=== PATIENT | male | born 1985 | race African-American/Black ===

== ENCOUNTER 2020-12-06 02:10 | Emergency (ER) | payer MEDICAID, OTHER ==
[~2020-12-06] VITALS: Ht 208.3 cm; Wt 106.6 kg
--- NOTE | 2020-12-06 02:19 | NUR ---
PT AAOX4. BIBRA FOR ETOH. PER PT HE DRANK VODKA. PT NOTED TO BE VOMITING. IV RAC 18G, PLACED. AWAITING FOR MD ORDERS.
[2020-12-06] MEDS ORDERED: IV NS 0.9% 1,000 ML BAG IV ONE (02:30)
[2020-12-06] MEDS ORDERED: ONDANSETRON HCL/PF 4 MG/2 ML VIAL IVP ONE ×2 (02:30→04:30)
[2020-12-06] MEDS ORDERED: ONDANSETRON HCL/PF 4 MG/2 ML VIAL ONE ×2 (02:31→04:16)
[2020-12-06] MEDS ORDERED: FAMOTIDINE/PF INJ 20 MG/2 ML VIAL IV ONE ×2 (03:42→04:00)
--- NOTE | 2020-12-06 04:07 | NUR ---
PT AMBULATED TO THE RESTROOM. ABLE TO AMBULATE ON HIS OWN.
--- NOTE | 2020-12-06 04:18 | NUR ---
PT VOMITING, ZOFRAN 4MG IVP GIVEN.
[2020-12-06] MEDS ORDERED: LIDOCAINE VISCOUS 2% UD 15 ML UDC ONE (04:32)
[2020-12-06] MEDS ORDERED: MAG HYDROX/AL HYDROX/SIMETH 30 ML UDC ONE (04:32)
[2020-12-06] MEDS ORDERED: MAG HYDROX/AL HYDROX/SIMETH 30 ML UDC PO ONE (05:00)
[2020-12-06] MEDS ORDERED: LIDOCAINE VISCOUS 2% UD 15 ML UDC MM ONE (05:00)
--- NOTE | 2020-12-06 05:13 | NUR ---
PT HAS STOPPED VOMITING. VSS.
[2020-12-06] MEDS ORDERED: FAMO-131 PO (05:47)
[2020-12-06] MEDS ORDERED: ONDA4TAB5 PO (05:47)
--- NOTE | 2020-12-06 06:10 | NUR ---
Patient discharged to home in stable condition. Written and verbal after care instructions given. Patient verbalizes understanding of instruction and RX. Pt will be discharged.
--- NOTE | 2020-12-06 06:25 | NUR ---
PT REFUSED TO SIGN DISCHARGE PAPERWORK. ER AWARE. SECURITY CALLED.
[2020-12-06 07:07] VITALS: BP 123/71
== END 2020-12-06 07:07 | disposition home or self-care (01) ==
LOC: ER 02:12
DX: K29.20 Alcoholic gastritis without bleeding (principal); F10.129 Alcohol abuse with intoxication, unspecified; R11.2 Nausea with vomiting, unspecified; Z88.0 Allergy status to penicillin; Y90.9 Presence of alcohol in blood, level not specified
CPT/HCPCS: 36415; 83690; 96361; 96374; 96375; 96376; 99284; J2405 ×2; J3490; J7030